=== PATIENT | female | born 1940 | race Caucasian/White ===

== ENCOUNTER 2025-01-23 07:23 | Inpatient (IN) | payer MEDICARE ==
[2025-01-23] MEDS ORDERED: LIDOCAINE 1% (10MG/ML) FOR IV START INTRADERMA PRN ×2 (07:44)
[2025-01-23] MEDS ORDERED: HYDROmorphone 0.5 MG/0.5 ML SYRINGE IVP PRN ×3 (07:44→11:18)
[2025-01-23] MEDS ORDERED: MIDAZOLAM 2 MG/2 ML VIAL IV PRN (07:44)
[2025-01-23] MEDS ORDERED: fentaNYL (PF) 50 MCG/ML 2 ML AMP IVP PRN (07:44)
[2025-01-23] MEDS: IV FLUID CONTINUATION 1,000 ML IV ONE (08:04)
[2025-01-23 08:30] LABS: Glucose,Whole Blood 93 mg/dL (70-110)
[2025-01-23] MEDS: LACTATED RINGERS 1,000 ML IV SCH (08:36)
[2025-01-23] MEDS: DEXAMETHASONE SOD PHOSPHATE 4 MG/ML 1 ML VIAL IV ONE ×2 (08:39→11:58)
[2025-01-23] MEDS: ONDANSETRON 4 MG/2 ML VIAL IVP ONE ×2 (08:39→11:58)
[2025-01-23] MEDS ORDERED: fentaNYL (PF) 50 MCG/ML 2 ML AMP ONE (08:44)
[2025-01-23] MEDS ORDERED: LIDOCAINE 1% INJ 10MG/ML (20 ML MDV) ONE (08:44)
[2025-01-23] MEDS ORDERED: ROCURONIUM 10 MG/ML (5 ML VIAL) IV ONE (08:44)
[2025-01-23] MEDS ORDERED: PROPOFOL 10 MG/ML 20 ML VIAL IV ONE (08:44)
[2025-01-23] MEDS ORDERED: NEOSTIGMINE 1 MG/ML 10 ML VIAL ONE (08:44)
[2025-01-23] MEDS ORDERED: MIDAZOLAM 2 MG/2 ML VIAL ONE (08:44)
[2025-01-23] MEDS ORDERED: HYDROmorphone (PF) 1 MG/ML ONE (08:44)
[2025-01-23] MEDS ORDERED: SUCCINYLCHOLINE CHLORIDE 200 MG/10 ML VIAL IV ONE (08:44)
[2025-01-23] MEDS ORDERED: GLYCOPYRROLATE 0.2 MG/ML 2 ML VIAL ONE (08:44)
[2025-01-23] MEDS: ceFAZolin 2 GM in DEXTROSE 5% IN WATER 50 ML IVPB PRN (08:49)
[2025-01-23] MEDS: ceFAZolin 1,000 MG in SODIUM CHLORIDE 0.9% 1,000 ML IRRIGATION ONE (08:49)
[2025-01-23 08:51] LABS: Basophils # (A) 0.02 10*3/uL (0.00-0.10); Basophils % (A) 0.4 %; Eosinophils # (A) 0.13 10*3/uL (0.04-0.35); Eosinophils % (A) 2.5 %; HGB 12.3 g/dL (12.0-15.0); Lymphocytes # (A) 1.22 10*3/uL (0.90-5.00); Lymphocytes % (A) 23.2 %; MCH 33.2 pg (27.0-32.0); MCHC 35.1 g/dL (32.0-37.0); MCV 94.6 fL (80.0-97.0); Mean Platelet Volume 9.2 fL (9.5-12.2); Monocytes # (A) 0.48 10*3/uL (0.20-1.00); Monocytes % (A) 9.1 %; Neutrophils # (A) 3.39 10*3/uL (1.80-7.70); Neutrophils % (A) 64.6 %; Platelet Count 181 10*3/uL (140-440); RDW 13.2 % (11.5-14.5); WBC 5.25 10*3/uL (4.50-10.00)
[2025-01-23] MEDS: LACTATED RINGERS 1,000 ML IV ONE (10:47)
--- NOTE | 2025-01-23 10:54 | P.OP ---
Date of Procedure: 01/23/25 Preoperative Diagnosis: Irritating hardware right hip Postoperative Diagnosis: Irritated hardware right hip Procedure(s) Performed: Removal of hardware right hip Implants: 10 cc DBM putty Anesthesia: [place] Surgeon: Manan Manning Oil Burner Repairer #1: Lenora Duron (He is about) Estimated Blood Loss (ml): 400 Pathology: none sent Condition: stable Disposition: PACU Indications for Procedure: This is an 84-year-old female that had a sliding hip screw placed in her right hip approximately 30 years ago. 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 Before the hip arthroplasty can be performed, the hardware must be removed from the right hip. Also, the hardware is irritating the lateral side of her hip. After discussing the surgical nonsurgical treatment options at length, she wishes to have the hardware removed from the right hip and informed consent was obtained. Operative Findings: The operative findings are consistent with retained hardware of the right hip Description of Procedure: The patient was seen and evaluated in the preoperative area and the consent was reviewed. The operative site was marked with a skin marker. The patient verified the procedure and operative site. The patient was then brought to the operating room and given preoperative antibiotics intravenously. A general anesthetic was administered by the anesthesia department. The patient was then placed on the [place] table with the bony prominences well-padded. The hip area was then prepped with a ChloraPrep solution and draped in the usual sterile fashion. A universal timeout was then performed, which confirmed the patient's name, surgical site, ALLERGIES, and procedure being performed on the consent. The prior incision was utilized and the skin and subcutaneous tissues were sharply incised. Incision was carried down to the fascia which was then split in line with the incision. The lateral femur was then exposed after dissecting through the vastus lateralis. Next using the appropriate screwdriver the setscrew and 2 proximal locking screws were removed from the plate without difficulty. The 2 distal locking screws were broken and the heads were removed. Next the plate was then dislodged from the femur. Due to bony overgrowth and osteotome and a mallet had to be used to free up the plate. The plate was then removed from the setscrew. The setscrew was then removed with the appropriate screw removal tool. Fluoroscopic x-rays confirmed removal of the setscrew. Next attention was directed to the 2 distal locking screws that were broken. Using the broken screw set the screws were overreamed and then the reverse threaded screw removal tool was then used to remove the 2 screws. After all the screws have been rem paresh, final fluoroscopic x-rays confirmed. Next the wound was copiously irrigated with antibiotic solution. Next 10 cc of DBM putty was used to fill the screw holes from where the plate and screws have been removed. The vastus lateralis was then repaired with 0 Vicryl. The fascia was then closed with 2-0 strata fix suture. The subcutaneous tissue was closed with 3-0 Vicryl. The subcuticular tissue was closed with 3-0 strata fix suture. The skin was then closed with Exofin skin glue. After the glue and dried, and Optifoam silver impregnated dressing was applied. The patient was then transferred to the recovery room in stable condition. The community relations assistant ESMER Wilson was required due to the complexity of surgery, and the need for skilled retail assistant manager for positioning, draping, exposure, retraction, and closure of the wound.
--- NOTE | 2025-01-23 11:03 | XR ---
EXAMINATION TYPE: XR Hip Limited RT, FL guidance operating room Intraoperative/procedural fluoroscopi c services were provided. CLINICAL INDICATION:Female, 84 years old with history of RIGHT HIP PAINFUL HARDWARE; , [facility] FINDINGS: Single fluoroscopic imaging demonstrating right hip hardware removal. No radiographic evidence for co mplication. Total fluoroscopy time is 40 seconds. DAP: 1.6223 Gycm2 Please see the operative/procedural note for further details. [facility], , 01/23/2025 11:00 AM
[2025-01-23] MEDS ORDERED: NALOXONE 0.4 MG/ML 1 ML VIAL IV PRN (11:18)
[2025-01-23] MEDS ORDERED: MAGNESIUM HYDROXIDE 2,400 MG/30 ML CUP PO PRN (11:18)
[2025-01-23] MEDS: HYDROmorphone 0.5 MG/0.5 ML SYRINGE IVP PRN ×2 (11:37→14:50)
[2025-01-23] MEDS: ceFAZolin 2 GM in DEXTROSE 5% IN WATER 50 ML IVPB SCH (16:00)
[2025-01-23] MEDS: SODIUM CHLORIDE 0.9% 1,000 ML IV SCH (16:00)
--- NOTE | 2025-01-23 17:45 | P.CONS ---
History of Present Illness - Reason for Consult Consult date: 01/23/25 - History of Present Illness 84 year old F with PMH of hypothyroidism and depression presents to [facility] for elective surgery. She underwent removal of right hip hardware with Dr. Manning. [facility] consulted for medical management of this patient. Patient reports no pain at this time. Has not urinated. No bowel movement or passing gas. CBC RBC 3.7, Hct 35, MCH 33.2, MPV 9.2. POC glucose 93. General: no distress, appears at stated age Derm: warm, dry Head: atraumatic, normocephalic, symmetric Mouth: no lip lesion, mucus membranes moist Cardiovascular: S1 S2 reg. No murmur. Lungs: Decreased BS bilaterally, no accessory muscle use Ext: no gross muscle atrophy, no edema, no contractures Neuro: No focal neurologic deficits. Psych: Alert and oriented. Based on my assessment of this patient, this patient meets a high complexity level of care. Hypothryoid: Synthroid 88 mcg PO QD. Depression: Lexapro 20 mg PO QHS. Removal of right hip hardware POD 0 management per Orthopedic Sx CODE STATUS: FULL CODE DVT Prophylaxis: ASA BID. GI Prophylaxis: Designated medical POA if patient is not able to make medical decisions for themselves: I have reviewed the following home performance consultant notes: Operative note. I have reviewed the results of the following tests: CBC, POC glucose. I have ordered the following tests: Agree with CBC. I have discussed the care of this patient with the following independent historian: Family at bedside. I have independently interpreted the following test below: I have discussed the management of this patient with the following physician: Past Medical History Past Medical History: Seizure Disorder, Thyroid Disorder Additional Past Medical History / Comment(s): hypothyroidism, anemia, hx. benign tumor neck femur Rt., hypoglycemia - thought to have caused petit mal seizures but last one was 3 yrs. ago History of Any Multi-Drug Resistant Organisms: None Reported Additional Past Surgical History / Comment(s): benign tumor removal Rt. femur 30 yrs. ago Past Anesthesia/Blood Transfusion Reactions: No Reported Reaction Additional Past Anesthesia/Blood Transfusion Reaction / Comm: has never had general anesthesia and does not want it Smoking Status: Never smoker - Past Family History Father Family Medical History: Cancer Additional Family Medical History / Comment(s): pancreatic cancer Mother Family Medical History: Congestive Heart Failure (CHF) Additional Family Medical History / Comment(s): age 94 Medications and Allergies Home Medications Medication Instructions Recorded Confirmed Type Cyanocobalamin [Vitamin B-12 1,000 mcg SQ Q14D 01/05/25 01/23/25 History Injection] Escitalopram [Lexapro] 20 mg PO HS 01/05/25 01/23/25 History Levothyroxine Sodium [Synthroid] 88 mcg PO DAILY 01/05/25 01/23/25 History Aspirin 325 mg PO BID #60 tab 01/23/25 Rx HYDROcodone/APAP 7.5-325MG [[place] 1 - 2 tab PO Q6H PRN #32 tab 01/23/25 Rx 7.5-325] Sennosides [Senokot] 2 tab PO DAILY PRN #60 tablet 01/23/25 Rx Allergies Allergy/AdvReac Type Severity Reaction Status Date / Time No Known Allergies Allergy Verified 01/23/25 08:05 Physical Exam Vitals: Vital Signs Temp Pulse Resp BP Pulse Ox 01/23/25 14:39 75 114/71 99 01/23/25 14:24 77 129/72 99 01/23/25 14:09 75 115/72 98 01/23/25 13:55 75 105/48 100 01/23/25 13:39 68 121/75 100 01/23/25 13:25 81 129/55 100 01/23/25 13:09 67 125/81 99 01/23/25 12:55 83 118/60 100 01/23/25 12:38 77 112/69 98 01/23/25 12:31 97.8 F 63 17 112/69 100 01/23/25 12:13 65 16 116/48 94 L 01/23/25 11:58 72 16 128/53 97 01/23/25 11:43 72 16 129/54 98 01/23/25 11:28 73 16 100/43 98 01/23/25 11:13 97 F L 95 16 103/75 98 01/23/25 08:06 97.5 F L 67 14 153/78 97 Intake and Output 01/23/25 01/23/25 01/23/25 06:59 14:59 22:59 Intake Total 2000 Output Total 400 Balance 1601 Intake: IV 2000 Output: Estimated Blood Loss 400 Other: Weight 79.8 kg Results CBC & Chem 7: 01/23/25 08:40 Labs: Abnormal Lab Results - Last 24 Hours (Table) 01/23/25 Range/Units 08:40 RBC 3.70 L (4.10-5.20) 10*6/uL Hct 35.0 L (37.2-46.3) % MCH 33.2 H (27.0-32.0) pg MPV 9.2 L (9.5-12.2) fL
[2025-01-23] MEDS: ASPIRIN 325 MG TAB PO SCH (21:02)
[2025-01-23] MEDS: SENNOSIDES-DOCUSATE SODIUM 1 EACH TAB PO SCH (21:02)
[2025-01-23] MEDS: ESCITALOPRAM 20 MG TAB PO SCH (21:02)
[2025-01-23] MEDS: HYDROcodone/APAP 7.5-325MG 1 EACH TAB PO PRN (21:02)
[2025-01-24 01:10] LABS: Glucose,Whole Blood 140 mg/dL (70-110)
--- NOTE | 2025-01-24 02:24 | XR ---
EXAM: XR Right Hip With Pelvis When Performed, 2 or 3 Views CLINICAL HISTORY: ITS.REASON XR Reason: Increased pain, hip popping TECHNIQUE: Two or three views of the right hip with pelvis when performed. COMPARISON: No relevant prior studies available. FINDINGS: Bones/joints: Acute displaced and angulated subtrochanteric fracture of the right femur with posttraumatic varus deformity. No right hip joint dislocation. Remodeling of the femoral neck may represent old healed fracture. Uniform joint space narrowing. Soft tissues: Soft tissue swelling lateral to the right hip with hypodense foci suggesting escaped marrow fat. IMPRESSION: 1. Acute displaced and angulated subtrochanteric fracture of the right femur with posttraumatic varus deformity. 2. Soft tissue swelling lateral to the right hip with hypodense foci suggesting escaped marrow fat.
--- NOTE | 2025-01-24 02:26 | XR ---
EXAM: XR Chest, 1 View CLINICAL HISTORY: ITS.REASON XR Reason: PRE OP TECHNIQUE: Frontal view of the chest. COMPARISON: No relevant prior studies available. FINDINGS: Lungs: Linear atelectasis or scar left lung base. No consolidation. Pleural space: No significant pleural effusion. No pneumothorax. Heart: No cardiomegaly or pulmonary vascular congestion. Bones/joints: No acute fracture. No dislocation. IMPRESSION: No acute findings in the chest.
[2025-01-24] MEDS: HYDROcodone/APAP 7.5-325MG 1 EACH TAB PO PRN (04:17)
[2025-01-24] MEDS: LEVOTHYROXINE 88 MCG TAB PO SCH (05:45)
[2025-01-24] MEDS: CYCLOBENZAPRINE 5 MG TAB PO PRN (05:45)
[2025-01-24 08:07] LABS: Basophils # (A) 0.01 X 10*3/uL (0.00-0.10); Basophils % (A) 0.1 %; Eosinophils # (A) 0 X 10*3/uL (0.04-0.35); Eosinophils % (A) 0 %; HCT 26.3 % (37.2-46.3); HGB 8.8 g/dL (12.0-15.0); Lymphocytes # (A) 0.85 X 10*3/uL (0.90-5.00); Lymphocytes % (A) 12.2 %; MCH 32.7 pg (27.0-32.0); MCHC 33.5 g/dL (32.0-37.0); MCV 97.8 FL (80.0-97.0); Mean Platelet Volume 10.4 FL (9.5-12.2); Monocytes # (A) 0.91 X 10*3/uL (0.20-1.00); Monocytes % (A) 13.1 %; NRBC Per 100 WBC 0 X 10*3/uL (0.00-0.01); Neutrophils # (A) 5.16 X 10*3/uL (1.80-7.70); Neutrophils % (A) 74.3 %; Platelet Count 194 X 10*3/uL (140-440); RBC 2.69 X 10*6/uL (4.10-5.20); RDW 13.6 % (11.5-14.5); WBC 6.95 X 10*3/uL (4.50-10.00)
--- NOTE | 2025-01-24 12:49 | P.PN ---
Subjective Progress Note Date: 01/24/25 This is an 84 year-old female who is status post removal of hardware from the right hip on 01/24/2025. This is postoperative day #1 and patient is seen and evaluated at bedside today. Patient states that early this morning she was transferring from the commode to the bed when she felt a pop in the right hip. An x-ray of the right hip was taken after this and revealed a displaced subtrochanteric fracture of the right femur. Patient states that her pain is controlled this morning. Patient denies any fever/chills, numbness, weakness or tingling. Objective - Vital Signs Vital signs: Vital Signs Temp 98.4 F 01/24/25 08:00 Pulse 79 01/24/25 08:00 Resp 18 01/24/25 08:00 BP 106/61 01/24/25 08:00 Pulse Ox 98 01/24/25 08:00 FiO2 Intake & Output 01/23/25 01/24/25 01/24/25 18:59 06:59 18:59 Intake Total 2000 Output Total 400 Balance 1601 Weight 79.8 kg Intake: IV 2000 Output: Estimated Blood Loss 400 Other: Voiding Method Bedside Commode External Catheter # Voids 1 2 # Bowel Movements 0 - Exam Vital signs are stable. Patient is in no acute distress and is alert and oriented 3. Calf is soft and nontender to palpation. Dressing is clean, dry, and intact. Patient has full foot and ankle motion without pain or difficulty. Sensation intact. Neurovascular status and circulatory status are intact. - Labs CBC & Chem 7: 01/24/25 02:54 Labs: Abnormal Lab Results - Last 24 Hours (Table) 01/24/25 01/24/25 Range/Units 01:09 02:54 RBC 2.69 L (4.10-5.20) X 10*6/uL Hgb 8.8 L (12.0-15.0) g/dL Hct 26.3 L (37.2-46.3) % MCV 97.8 H (80.0-97.0) FL MCH 32.7 H (27.0-32.0) pg Lymphocytes # 0.85 L (0.90-5.00) X 10*3/uL Eosinophils # 0 L (0.04-0.35) X 10*3/uL POC Glucose (mg/dL) 140 H (70-110) mg/dL Assessment and Plan (1) S/P hardware removal Current Visit: Yes Status: Acute Code(s): Z98.890 - OTHER SPECIFIED POSTPROCEDURAL STATES SNOMED Code(s): 150733561 (2) Subtrochanteric fracture of right femur Current Visit: Yes Status: Acute Code(s): S72.21XA - DISPLACED SUBTROCHANTERIC FRACTURE OF RIGHT FEMUR, INIT SNOMED Code(s): 035085692 Plan: 1. NPO 2. Continue bed rest and pain control. 3. Hgb is 8.8 today. Type and screen ordered. 4. X-rays of the right hip are reviewed revealing a subtrochanteric right femur fracture. Discussed treatment options at bedside with the patient and her son. Due to the nature of her fracture, closed reduction and intramedullary nailing of the right hip later is planned for later today. All questions and concerns are addressed at bedside today.
[2025-01-24] MEDS ORDERED: NALOXONE 0.4 MG/ML 1 ML VIAL IV PRN (13:03)
[2025-01-24] MEDS: ONDANSETRON 4 MG/2 ML VIAL IVP PRN (13:33)
[2025-01-24] MEDS: IV FLUID CONTINUATION 1,000 ML IV ONE (13:34)
[2025-01-24] MEDS ORDERED: NEOSTIGMINE 1 MG/ML 10 ML VIAL ONE (13:40)
[2025-01-24] MEDS ORDERED: GLYCOPYRROLATE 0.2 MG/ML 2 ML VIAL ONE (13:40)
[2025-01-24] MEDS ORDERED: PHENYLEPHRINE 10 MG/ML VIAL ONE (13:40)
[2025-01-24] MEDS ORDERED: TRANEXAMIC 1,000 MG/100ML-NACL PREMIX BAG ONE (13:40)
[2025-01-24] MEDS ORDERED: PROPOFOL 10 MG/ML 20 ML VIAL IV ONE (13:40)
[2025-01-24] MEDS ORDERED: LIDOCAINE 1% INJ 10MG/ML (20 ML MDV) ONE (13:40)
[2025-01-24] MEDS ORDERED: ROCURONIUM 10 MG/ML (5 ML VIAL) IV ONE (13:40)
[2025-01-24] MEDS ORDERED: MIDAZOLAM 2 MG/2 ML VIAL ONE (13:40)
[2025-01-24] MEDS ORDERED: SUCCINYLCHOLINE CHLORIDE 200 MG/10 ML VIAL IV ONE (13:40)
[2025-01-24] MEDS ORDERED: fentaNYL (PF) 50 MCG/ML 2 ML AMP ONE (13:40)
[2025-01-24] MEDS: ceFAZolin 2 GM in DEXTROSE 5% IN WATER 50 ML IVPB SCH (13:41)
--- NOTE | 2025-01-24 14:00 | P.PN ---
Subjective Progress Note Date: 01/24/25 84 year old F with PMH of hypothyroidism and depression presents to [facility] for elective surgery. She underwent removal of right hip hardware with Dr. Manning. [facility] consulted for medical management of this patient. 01/24 Patient was seen and examined. Using the commode this morning when she heard a pop in her R hip. Hip XR shows acute displaced subtrochanteric fracture of the right femur. CXR was also done which showed no acute findings. Plans for surgery this afternoon. CBC shows WBC 2.69, Hg 8.8, Hct 26.3, MCV 97.8. General: no distress, appears at stated age Derm: warm, dry Head: atraumatic, normocephalic, symmetric Mouth: no lip lesion, mucus membranes moist Cardiovascular: S1 S2 reg. No murmur. Lungs: Decreased BS bilaterally, no accessory muscle use Ext: no gross muscle atrophy, no edema, no contractures Neuro: No focal neurologic deficits. Psych: Alert and oriented. Based on my assessment of this patient, this patient meets a high complexity level of care. Acute blood loss anemia: Expected result of surgery. Daily CBC. Transfuse if Hg < 7. Acute displaced subtrochanteric fracture of the right femur: Plans for OR this afternoon. Hypothryoid: Synthroid 88 mcg PO QD. Depression: Lexapro 20 mg PO QHS. Removal of right hip hardware POD 1 management per Orthopedic Sx CODE STATUS: FULL CODE DVT Prophylaxis: Eliquis BID GI Prophylaxis: Designated medical POA if patient is not able to make medical decisions for themselves: I have reviewed the following hearing aid consultant notes: Ortho note. I have reviewed the results of the following tests: CBC. I have ordered the following tests: Agree with CBC. I have discussed the care of this patient with the following independent historian: Family at bedside. RN. I have independently interpreted the following test below: CXR. I have discussed the management of this patient with the following physician: Objective - Vital Signs Vital signs: Vital Signs Temp 98.9 F 01/24/25 13:03 Pulse 87 01/24/25 13:03 Resp 18 01/24/25 13:03 BP 128/54 01/24/25 13:03 Pulse Ox 93 L 01/24/25 13:03 FiO2 Intake & Output 06/09/25 06/10/25 06/10/25 18:59 06:59 18:59 Intake Total 2000 Output Total 400 Balance 1601 Weight 79.8 kg Intake: IV 2000 Output: Estimated Blood Loss 400 Other: Voiding Method Bedside Commode External Catheter # Voids 1 2 # Bowel Movements 0 - Labs CBC & Chem 7: 01/24/25 02:54 Labs: Abnormal Lab Results - Last 24 Hours (Table) 01/24/25 01/24/25 Range/Units 01:09 02:54 RBC 2.69 L (4.10-5.20) X 10*6/uL Hgb 8.8 L (12.0-15.0) g/dL Hct 26.3 L (37.2-46.3) % MCV 97.8 H (80.0-97.0) FL MCH 32.7 H (27.0-32.0) pg Lymphocytes # 0.85 L (0.90-5.00) X 10*3/uL Eosinophils # 0 L (0.04-0.35) X 10*3/uL POC Glucose (mg/dL) 140 H (70-110) mg/dL
[2025-01-24] MEDS: ceFAZolin 1,000 MG in SODIUM CHLORIDE 0.9% 1,000 ML IRRIGATION ONE (14:11)
[2025-01-24] MEDS: LACTATED RINGERS 1,000 ML IV ONE (15:06)
--- NOTE | 2025-01-24 15:23 | P.OP ---
Date of Procedure: 01/24/25 Preoperative Diagnosis: Subtrochanteric fracture right femur status post hardware removal Postoperative Diagnosis: Subtrochanteric right femur fracture status post hardware removal Procedure(s) Performed: Close reduction and intramedullary nailing right femur Implants: [employer] Tri[employer] Intertan nail 125, 11.5 mm x 34 cm. [employer] Intertan integrated-interlocking lag screw, 100 mm lag screw, 95 mm compression screw. [employer] L-P screw, 5.0 mm x 40 mm. [employer] L-P screw, 5.0 mm x 50 mm. Anesthesia: GETA Surgeon: Manan Manning Wash House Worker #1: Lenora Duron Estimated Blood Loss (ml): 500 Pathology: none sent Condition: stable Disposition: PACU Indications for Procedure: This is an 84-year-old female that had a sliding hip screw removed from her right hip that had been in there approximately 30 years yesterday in the OR. 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 X-rays demons trate a subtrochanteric fracture of her right femur. After reviewing the x- rays, I discussed the surgical nonsurgical treatment options with her and her family at length. I have recommended a closed reduction with the long intramedullary nail of the subtrochanteric fracture of her right femur. Other options including immediate hip replacement were discussed, but I felt that this was too risky of a procedure in light of her recent trauma. After lengthy discussion with me explaining the surgical risks benefits and possible complications to the best my ability, informed consent was obtained. Operative Findings: The operative findings are consistent with a subtrochanteric fracture of the right femur Description of Procedure: The patient was seen in the preoperative area, consent was reviewed, and the operative site was marked with a skin marker. The surgical procedure was discussed at length with both the patient and the family at the bedside. All questions were answered to the best of my ability. The patient was brought to the operating room and placed on the fracture table. Anesthesia was administered by the anesthesia department. 2 g of Ancef were administered intravenously, as well as 1 g of TXA. The patient was placed supine on the fracture table with the fractured extremity in traction boot. The other extremity was placed in a well leg rocha and the bony prominences were well padded. A universal timeout was then performed which confirmed the patient's name, surgical site, ALLERGIES, and consent. Fracture reduction was performed with a traction and abduction maneuver which was confirmed with fluoroscopy, both AP and lateral views.. After reduction was performed, the extremity was then prepped with ChloraPrep solution and draped in the usual sterile fashion. Utilizing fluoroscopy to identify the tip of the greater trochanter, a 3 cm longitudinal incision was made just proximal to the greater trochanter. Incision was carried through the fascia to the tip of the greater trochanter. Utilizing a curved awl, the entry point was created at the tip of the greater trochanter and centralized in the AP and lateral planes. These locations were confirmed by fluoroscopy. A guidewire was then inserted down the medullary canal. The length of the femoral nail was then measured using fluoroscopy. Sequentially reaming of the femur was performed to 13 mm distally and 17 mm proximally with the channel reamer. After reaming, appropriate size nail was inserted over the guidewire. The nail was inserted to the appropriate depth and the guidewire was removed. Placement of the corby was confirmed with both AP and lateral fluoroscopic views. The lag screw drill sleeve was placed in the jig and a small skin incision was made on the lateral aspect of the leg and the lag screw drill sleeve was locked into the guide. The 3.2 mm guide pin sleeve was inserted through the lag screw drill sleeve down to bone. A 3.2 mm distally threaded guidewire was inserted through the guide pin sleeve. The guidewire was inserted in the desired position in the femoral head, both anterior and posterior. The lag screw length cage was inserted over the guidepin to the back of the lag screw drill sleeve. Lag screw length was then measured from the cage. Next, the 7.0 mm compression screw starter drill was inserted in the lag screw drill sleeve beneath the guidepin. The compression screw starter drill was advanced under power until it abutted the back and of the lag screw drill sleeve. The 7.0 mm compression screw drill was inserted through the lag screw drill sleeve into the hole created by the compression screw starter drill. This was advanced under fluoroscopy to a depth 5 mm less and the measurement taken for the guidepin. The compression screw drill was removed and the antirotation bar was inserted into the same hole. The 3.2 mm guide pin sleeve was then removed from the drill guide. The lag screw drill was then inserted to a depth that was measured by the lag screw gauge. This was done under fluoroscopy. The lag screw was inserted over the guidewire to the appropriate depth using fluoroscopy. Traction was then released. The antirotation bar was then removed and the compression screw was advanced through the lag screw drill sleeve beneath the lag screw. This was advanced to the appropriate compression was achieved. The drill guide was then removed and attention was directed to the 2 distal locking screws. Using a freehand technique with fluoroscopy, 2 screws were then placed through the distal locking holes lateral to medial. The length and placement of the screws was confirmed with fluoroscopy. Final fluoroscopic x-rays were obtained. The wounds were then irrigated copiously with saline solution. Fascia was closed with 0-Vicryl. Subcutaneous tissues were closed with 2-0 Vicryl and the skin was closed with exofin glue. Sterile dressings were applied. The patient was transported to the recovery room in stable condition. The assistant professor of criminal justice ESMER Wilson was required due the complexity of surgery the need for skilled surgical scrub technologist for positioning draping retraction and fracture reduction.
--- NOTE | 2025-01-24 17:16 | XR ---
EXAMINATION TYPE: XR Femur RT 1 View, FL guidance operating room, XR Hip Limited RT Intraoperative/pr ocedural fluoroscopic services were provided. CLINICAL INDICATION:Female, 84 years old with history of RT IT NAIL; , [facility] FINDINGS: Fluoroscopic images demonstrating right intramedullary femoral nail with fixation screws for previous ly seen right proximal humerus fracture. No radiographic evidence for complication. Total fluoroscopy time is 1.33 min. DAP: 4.3511 Gycm2 Please see the operative/procedural note for further details. [facility], , 01/24/2025 3:30 PM
[2025-01-24] MEDS: ceFAZolin 2 GM in DEXTROSE 5% IN WATER 50 ML IVPB ONE (18:32)
[2025-01-24] MEDS: TRANEXAMIC 1,000 MG/100ML-NACL 1,000 MG in SALINE 1 100ML.BAG IVPB ONE (18:33)
[2025-01-24 18:42] LABS: Basophils # (A) 0.02 10*3/uL (0.00-0.10); Basophils % (A) 0.2 %; HCT 22.8 % (37.2-46.3); Lymphocytes # (A) 0.49 10*3/uL (0.90-5.00); Lymphocytes % (A) 5.1 %; MCH 33.2 pg (27.0-32.0); MCHC 33.8 g/dL (32.0-37.0); MCV 98.3 fL (80.0-97.0); Mean Platelet Volume 9.7 fL (9.5-12.2); Monocytes # (A) 0.61 10*3/uL (0.20-1.00); Monocytes % (A) 6.4 %; Neutrophils # (A) 8.45 10*3/uL (1.80-7.70); Platelet Count 187 10*3/uL (140-440); RBC 2.32 10*6/uL (4.10-5.20); RDW 13.4 % (11.5-14.5)
[2025-01-24 18:45] LABS: HGB 7.7 g/dL (12.0-15.0)
[2025-01-25 04:32] LABS: African American GFR (CKD) >90 (>60 ml/min/1.73 sqM); Anion Gap 4 mmol/L; Blood Urea Nitrogen 14 mg/dL (7-17); Calcium 8.7 mg/dL (8.4-10.2); Carbon Dioxide 26 mmol/L (22-30); Chloride 101 mmol/L (98-107); Glucose 117 mg/dL (74-99); Non-African American GFR(CKD) 85 (>60 ml/min/1.73 sqM); Potassium 4.1 mmol/L (3.5-5.1); Sodium 131 mmol/L (137-145)
[2025-01-25 08:13] LABS: MCH 32.6 pg (27.0-32.0); Mean Platelet Volume 10.5 FL (9.5-12.2); NRBC Per 100 WBC 0 X 10*3/uL (0.00-0.01); Platelet Count 170 X 10*3/uL (140-440); RBC 1.93 X 10*6/uL (4.10-5.20); RDW 13.9 % (11.5-14.5); WBC 7.21 X 10*3/uL (4.50-10.00)
[2025-01-25 09:04] LABS: Basophils # (A) 0.01 X 10*3/uL (0.00-0.10); Basophils % (A) 0.1 %; Eosinophils # (A) 0 X 10*3/uL (0.04-0.35); Eosinophils % (A) 0 %; HCT 19.1 % (37.2-46.3); HGB 6.3 g/dL (12.0-15.0); Lymphocytes # (A) 1.02 X 10*3/uL (0.90-5.00); Lymphocytes % (A) 14.1 %; Monocytes # (A) 0.79 X 10*3/uL (0.20-1.00); Neutrophils # (A) 5.36 X 10*3/uL (1.80-7.70); Neutrophils % (A) 74.4 %
[2025-01-25 09:05] LABS: Basophils # (A) 0.02 10*3/uL (0.00-0.10); Basophils % (A) 0.3 %; Eosinophils # (A) 0.03 10*3/uL (0.04-0.35); Eosinophils % (A) 0.4 %; HCT 20.2 % (37.2-46.3); Lymphocytes # (A) 1.18 10*3/uL (0.90-5.00); Lymphocytes % (A) 15.6 %; MCHC 34.2 g/dL (32.0-37.0); MCV 99.5 fL (80.0-97.0); Mean Platelet Volume 9.9 fL (9.5-12.2); Monocytes # (A) 0.67 10*3/uL (0.20-1.00); Monocytes % (A) 8.9 %; Neutrophils # (A) 5.62 10*3/uL (1.80-7.70); Neutrophils % (A) 74.5 %; Platelet Count 188 10*3/uL (140-440); RBC 2.03 10*6/uL (4.10-5.20); RDW 13.7 % (11.5-14.5); WBC 7.54 10*3/uL (4.50-10.00)
[2025-01-25 09:20] LABS: HGB 6.9 g/dL (12.0-15.0)
--- NOTE | 2025-01-25 10:36 | P.PN ---
Subjective Progress Note Date: 01/25/25 This is an 84-year-old female who is status post closed reduction and intramedullary nailing of the right femur. This is postoperative day #1 and patient is seen and evaluated at bedside today. Patient states that her pain is well-controlled, but states that she feels quite tired and weak this morning. Hemoglobin came back at 6.9 with 1 unit of blood ordered. Patient will work with physical therapy later this afternoon. Objective - Vital Signs Vital signs: Vital Signs Temp 98.1 F 01/25/25 07:35 Pulse 102 H 01/25/25 07:35 Resp 16 01/25/25 07:35 BP 107/56 01/25/25 07:35 Pulse Ox 97 01/25/25 07:35 FiO2 Intake & Output 01/24/25 01/25/25 01/25/25 18:59 06:59 18:59 Intake Total 1201 Output Total 2300 400 Balance -1099 -400 Intake: IV 1201 Output: Urine 1800 400 Estimated Blood Loss 500 Other: Voiding Method External Catheter Indwelling Catheter Indwelling Catheter # Voids 1 - Exam Vital signs are stable. Patient is in no acute distress and is alert and oriented 3. Calf is soft and nontender to palpation. Dressings are clean, dry, and intact. Patient has full foot and ankle motion without pain or difficulty. Sensation intact. Neurovascular status and circulatory status are intact. - Labs CBC & Chem 7: 01/25/25 08:01 01/25/25 03:13 Labs: Abnormal Lab Results - Last 24 Hours (Table) 01/24/25 01/25/25 01/25/25 Range/Units 18:28 03:13 03:13 RBC 2.32 L 1.93 L (4.10-5.20) 10*6/uL Hgb 7.7 L D 6.3 A* (12.0-15.0) g/dL Hct 22.8 L 19.1 A* (37.2-46.3) % MCV 98.3 H 99.0 H (80.0-97.0) fL MCH 33.2 H 32.6 H (27.0-32.0) pg Neutrophils # 8.45 H (1.80-7.70) 10*3/uL Lymphocytes # 0.49 L (0.90-5.00) 10*3/uL Eosinophils # 0.00 L 0 L (0.04-0.35) 10*3/uL Sodium 131 L (137-145) mmol/L Glucose 117 H (74-99) mg/dL 01/25/25 Range/Units 08:01 RBC 2.03 L (4.10-5.20) 10*6/uL Hgb 6.9 L* (12.0-15.0) g/dL Hct 20.2 L (37.2-46.3) % MCV 99.5 H (80.0-97.0) fL MCH 34.0 H (27.0-32.0) pg Neutrophils # (1.80-7.70) 10*3/uL Lymphocytes # (0.90-5.00) 10*3/uL Eosinophils # 0.03 L (0.04-0.35) 10*3/uL Sodium (137-145) mmol/L Glucose (74-99) mg/dL Assessment and Plan Assessment: Status post closed reduction and intramedullary nailing of the right femur for subtrochanteric femur fracture (1) S/P hardware removal Current Visit: Yes Status: Acute Code(s): Z98.890 - OTHER SPECIFIED POSTPROCEDURAL STATES SNOMED Code(s): 771267757 (2) Subtrochanteric fracture of right femur Current Visit: Yes Status: Acute Code(s): S72.21XA - DISPLACED SUBTROCHANTERIC FRACTURE OF RIGHT FEMUR, INIT SNOMED Code(s): 279864594 Plan: 1. Strictly nonweightbearing to the right lower extremity. 2. Continue pain control. 3. Eliquis for DVT prophylaxis. 4. Hgb 6.9 this morning. 1 unit of blood ordered. 5. Physical therapy for mobilization. 6. Appreciate input from internal medicine. 7. Anticipate discharge to [facility] in the next 24-48 hours.
[2025-01-25] MEDS: APIXABAN 2.5 MG TABLET PO SCH (11:59)
[2025-01-25] MEDS: LACTATED RINGERS 1,000 ML IV SCH (12:00)
--- NOTE | 2025-01-25 16:34 | P.PN ---
Subjective Progress Note Date: 01/25/25 84 year old F with PMH of hypothyroidism and depression presents to [facility] for elective surgery. She underwent removal of right hip hardware with Dr. Manning. [facility] consulted for medical management of this patient. 01/24 Patient was seen and examined. Using the commode this morning when she heard a pop in her R hip. Hip XR shows acute displaced subtrochanteric fracture of the right femur. CXR was also done which showed no acute findings. Plans for surgery this afternoon. CBC shows WBC 2.69, Hg 8.8, Hct 26.3, MCV 97.8. 01/25 Patient was seen and examined. In good spirits. Urinating freely. Passing gas but no BM. Denies dizziness, chest pain, SOB, palpitations. Underwent closed reduction and intramedullary nailing right femur on 01/24. CBC this morning shows RBC 2.03, Hg 6.9, Hct 20.2, MCV 99.5. Plans to transfuse 1 PRBC. General: no distress, appears at stated age Derm: warm, dry Head: atraumatic, normocephalic, symmetric Mouth: no lip lesion, mucus membranes moist Cardiovascular: S1 S2 tachy. No murmur. Lungs: Decreased BS bilaterally, no accessory muscle use Ext: no gross muscle atrophy, no edema, no contractures Neuro: No focal neurologic deficits. Psych: Alert and oriented. Based on my assessment of this patient, this patient meets a high complexity level of care. Acute blood loss anemia: Expected result of surgery. Daily CBC. Plans to transfuse 1 PRBC 01/25. Transfuse if Hg < 7. Acute displaced subtrochanteric fracture of the right femur: POD 1 closed reduction and intramedullary nailing right femur. Hypothryoid: Synthroid 88 mcg PO QD. Depression: Lexapro 20 mg PO QHS. Removal of right hip hardware POD 2 management per Orthopedic Sx CODE STATUS: FULL CODE DVT Prophylaxis: Hold Eliquis due to drop in Hg. GI Prophylaxis: Designated medical POA if patient is not able to make medical decisions for themselves: I have reviewed the following sustainability consultant notes: Ortho note. I have reviewed the results of the following tests: CBC. I have ordered the following tests: Agree with CBC. I have discussed the care of this patient with the following independent histor jem: Family at bedside. RN. I have independently interpreted the following test below: I have discussed the management of this patient with the following physician: Objective - Vital Signs Vital signs: Vital Signs Temp 98.1 F 01/25/25 16:15 Pulse 94 01/25/25 16:15 Resp 16 01/25/25 16:15 BP 118/66 01/25/25 16:15 Pulse Ox 100 01/25/25 16:15 FiO2 Intake & Output 01/24/25 01/25/25 01/25/25 18:59 06:59 18:59 Intake Total 1201 310 Output Total 2300 400 Balance -1099 -400 310 Intake: IV 1201 Blood Product 310 Rc As-1 Unit 310 [id number] Output: Urine 1800 400 Estimated Blood Loss 500 Other: Voiding Method External Catheter Indwelling Catheter Indwelling Catheter # Voids 1 - Labs CBC & Chem 7: 01/25/25 08:01 01/25/25 03:13 Labs: Abnormal Lab Results - Last 24 Hours (Table) 01/24/25 01/25/25 01/25/25 Range/Units 18:28 03:13 03:13 RBC 2.32 L 1.93 L (4.10-5.20) 10*6/uL Hgb 7.7 L D 6.3 A* (12.0-15.0) g/dL Hct 22.8 L 19.1 A* (37.2-46.3) % MCV 98.3 H 99.0 H (80.0-97.0) fL MCH 33.2 H 32.6 H (27.0-32.0) pg Neutrophils # 8.45 H (1.80-7.70) 10*3/uL Lymphocytes # 0.49 L (0.90-5.00) 10*3/uL Eosinophils # 0.00 L 0 L (0.04-0.35) 10*3/uL Sodium 131 L (137-145) mmol/L Glucose 117 H (74-99) mg/dL Crossmatch 01/25/25 01/25/25 Range/Units 08:01 08:09 RBC 2.03 L (4.10-5.20) 10*6/uL Hgb 6.9 L* (12.0-15.0) g/dL Hct 20.2 L (37.2-46.3) % MCV 99.5 H (80.0-97.0) fL MCH 34.0 H (27.0-32.0) pg Neutrophils # (1.80-7.70) 10*3/uL Lymphocytes # (0.90-5.00) 10*3/uL Eosinophils # 0.03 L (0.04-0.35) 10*3/uL Sodium (137-145) mmol/L Glucose (74-99) mg/dL Crossmatch See Detail
[2025-01-26 08:56] LABS: HCT 21.2 % (37.2-46.3); HGB 6.8 g/dL (12.0-15.0); MCH 30.5 pg (27.0-32.0); MCHC 32.1 g/dL (32.0-37.0); MCV 95.1 FL (80.0-97.0); Mean Platelet Volume 9.7 FL (9.5-12.2); NRBC Per 100 WBC 0 X 10*3/uL (0.00-0.01); Platelet Count 148 X 10*3/uL (140-440); RBC 2.23 X 10*6/uL (4.10-5.20); RDW 17.7 % (11.5-14.5); WBC 6.38 X 10*3/uL (4.50-10.00)
[2025-01-26 08:57] LABS: Basophils # (A) 0.03 X 10*3/uL (0.00-0.10); Basophils % (A) 0.5 %; Eosinophils # (A) 0.21 X 10*3/uL (0.04-0.35); Eosinophils % (A) 3.3 %; Lymphocytes # (A) 1.55 X 10*3/uL (0.90-5.00); Lymphocytes % (A) 24.3 %; Monocytes # (A) 0.73 X 10*3/uL (0.20-1.00); Monocytes % (A) 11.4 %; Neutrophils # (A) 3.83 X 10*3/uL (1.80-7.70)
--- NOTE | 2025-01-26 11:57 | P.PN ---
Subjective Progress Note Date: 01/26/25 This is an 84-year-old female who is status post closed reduction and intramedullary nailing of the right femur. This is postoperative day #2 and patient is seen and evaluated at bedside today. Patient states that her pain is well-controlled today. Patient denies any new complaints today. . Objective - Vital Signs Vital signs: Vital Signs Temp 98.2 F 01/26/25 11:15 Pulse 89 01/26/25 11:15 Resp 16 01/26/25 11:15 BP 125/70 01/26/25 11:15 Pulse Ox 100 01/26/25 11:15 FiO2 Intake & Output 01/25/25 01/26/25 01/26/25 18:59 06:59 18:59 Intake Total 310 540 0 Output Total 500 325 Balance -190 215 0 Intake: Oral 540 Blood Product 310 0 Unit 0 Rc As-1 Unit 310 [id number] Output: Urine 500 325 Uretheral (Laboy) 325 Other: Voiding Method Indwelling Catheter Indwelling Catheter Indwelling Catheter - Exam Vital signs are stable. Patient is in no acute distress and is alert and oriented 3. Calf is soft and nontender to palpation. Dressings are clean, dry, and intact. Patient has full foot and ankle motion without pain or difficulty. Sensation intact. Neurovascular status and circulatory status are intact. - Labs CBC & Chem 7: 01/26/25 03:10 01/25/25 03:13 Labs: Abnormal Lab Results - Last 24 Hours (Table) 01/25/25 01/26/25 Range/Units 08:09 03:10 RBC 2.23 L (4.10-5.20) X 10*6/uL Hgb 6.8 A* (12.0-15.0) g/dL Hct 21.2 L (37.2-46.3) % RDW 17.7 H (11.5-14.5) % Crossmatch See Detail Assessment and Plan Assessment: Postop day #2 closed reduction and intramedullary nailing of the right femur for subtrochanteric femur fracture Postop day #3 removal of hardware right hip. (1) S/P hardware removal Current Visit: Yes Status: Acute Code(s): Z98.890 - OTHER SPECIFIED POSTPROCEDURAL STATES SNOMED Code(s): 079964502 (2) Subtrochanteric fracture of right femur Current Visit: Yes Status: Acute Code(s): S72.21XA - DISPLACED SUBTROCHANTERIC FRACTURE OF RIGHT FEMUR, INIT SNOMED Code(s): 078822106 Plan: 1. Strictly nonweightbearing to the right lower extremity. 2. Continue pain control. 3. Eliquis for DVT prophylaxis. 4. Hgb 6.8 this morning. 1 unit of blood ordered. 5. Physical therapy for mobilization. 6. Appreciate input from internal medicine. 7. Anticipate discharge to [facility] in the next 24-48 hours.
--- NOTE | 2025-01-26 13:15 | P.PN ---
Subjective Progress Note Date: 01/26/25 84 year old F with PMH of hypothyroidism and depression presents to [facility] for elective surgery. She underwent removal of right hip hardware with Dr. Manning. [facility] consulted for medical management of this patient. 01/24 Patient was seen and examined. Using the commode this morning when she heard a pop in her R hip. Hip XR shows acute displaced subtrochanteric fracture of the right femur. CXR was also done which showed no acute findings. Plans for surgery this afternoon. CBC shows WBC 2.69, Hg 8.8, Hct 26.3, MCV 97.8. 01/25 Patient was seen and examined. In good spirits. Urinating freely. Passing gas but no BM. Denies dizziness, chest pain, SOB, palpitations. Underwent closed reduction and intramedullary nailing right femur on 01/24. CBC this morning shows RBC 2.03, Hg 6.9, Hct 20.2, MCV 99.5. Plans to transfuse 1 PRBC. 01/26 Patient was seen and examined. Reports hip discomfort with movement. Passing gas but no BM. CBC this morning shows RBC 2.23, Hg 6.8, Hct 21.2. Plans to transfuse 1 PRBC. General: no distress, appears at stated age Derm: warm, dry Head: atraumatic, normocephalic, symmetric Mouth: no lip lesion, mucus membranes moist Cardiovascular: S1 S2 tachy. No murmur. Lungs: Decreased BS bilaterally, no accessory muscle use Ext: no gross muscle atrophy, no edema, no contractures Neuro: No focal neurologic deficits. Psych: Alert and oriented. Based on my assessment of this patient, this patient meets a high complexity level of care. Acute blood loss anemia: Expected result of surgery. Daily CBC. Plans to transfuse 1 PRBC 01/25 + 01/26. Transfuse if Hg < 7. Acute displaced subtrochanteric fracture of the right femur: POD 2 closed reduction and intramedullary nailing right femur. Fall precautions. PT and OT on board. Orthopedic Sx managing. Hypothryoid: Synthroid 88 mcg PO QD. Depression: Lexapro 20 mg PO QHS. Removal of right hip hardware POD 3 management per Orthopedic Sx CODE STATUS: FULL CODE DVT Prophylaxis: Hold Eliquis due to drop in Hg. GI Prophylaxis: Designated medical POA if patient is not able to make medical decisions for themselves: I have reviewed the following building energy consultant notes: Ortho note. I have reviewed the results of the following tests: CBC. I have ordered the following tests: Agree with CBC. I have discussed the care of this patient with the following independent historian: Family at bedside. Case management. I have independently interpreted the following test below: I have discussed the management of this patient with the following physician: Objective - Vital Signs Vital signs: Vital Signs Temp 98.2 F 01/26/25 11:15 Pulse 89 01/26/25 11:15 Resp 16 01/26/25 11:15 BP 125/70 01/26/25 11:15 Pulse Ox 100 01/26/25 11:15 FiO2 Intake & Output 01/25/25 01/26/25 01/26/25 18:59 06:59 18:59 Intake Total 310 540 0 Output Total 500 325 Balance -190 215 0 Intake: Oral 540 Blood Product 310 0 Unit 0 Rc As-1 Unit 310 [id number] Output: Urine 500 325 Uretheral (Laboy) 325 Other: Voiding Method Indwelling Catheter Indwelling Catheter Indwelling Catheter # Voids 1 - Labs CBC & Chem 7: 01/26/25 03:10 01/25/25 03:13 Labs: Abnormal Lab Results - Last 24 Hours (Table) 01/25/25 01/26/25 Range/Units 08:09 03:10 RBC 2.23 L (4.10-5.20) X 10*6/uL Hgb 6.8 A* (12.0-15.0) g/dL Hct 21.2 L (37.2-46.3) % RDW 17.7 H (11.5-14.5) % Crossmatch See Detail
[2025-01-26 19:02] LABS: Basophils # (A) 0.03 10*3/uL (0.00-0.10); Basophils % (A) 0.5 %; Eosinophils % (A) 3.3 %; HCT 24.2 % (37.2-46.3); HGB 8.3 g/dL (12.0-15.0); Lymphocytes # (A) 1.22 10*3/uL (0.90-5.00); Lymphocytes % (A) 19.9 %; MCH 31.2 pg (27.0-32.0); MCHC 34.3 g/dL (32.0-37.0); Mean Platelet Volume 9.5 fL (9.5-12.2); Monocytes # (A) 0.56 10*3/uL (0.20-1.00); Monocytes % (A) 9.1 %; Neutrophils # (A) 4.07 10*3/uL (1.80-7.70); Neutrophils % (A) 66.2 %; Platelet Count 155 10*3/uL (140-440); RBC 2.66 10*6/uL (4.10-5.20); WBC 6.14 10*3/uL (4.50-10.00)
[2025-01-27 08:55] LABS: Basophils # (A) 0.02 X 10*3/uL (0.00-0.10); Basophils % (A) 0.3 %; Eosinophils # (A) 0.18 X 10*3/uL (0.04-0.35); Eosinophils % (A) 3.1 %; HCT 21.8 % (37.2-46.3); HGB 7.3 g/dL (12.0-15.0); Lymphocytes # (A) 1.17 X 10*3/uL (0.90-5.00); Lymphocytes % (A) 20.5 %; MCH 31.1 pg (27.0-32.0); MCHC 33.5 g/dL (32.0-37.0); MCV 92.8 FL (80.0-97.0); Mean Platelet Volume 9.8 FL (9.5-12.2); Monocytes # (A) 0.56 X 10*3/uL (0.20-1.00); Monocytes % (A) 9.8 %; NRBC Per 100 WBC 0 X 10*3/uL (0.00-0.01); Neutrophils # (A) 3.76 X 10*3/uL (1.80-7.70); Neutrophils % (A) 65.8 %; Platelet Count 151 X 10*3/uL (140-440); RBC 2.35 X 10*6/uL (4.10-5.20); RDW 17.2 % (11.5-14.5); WBC 5.72 X 10*3/uL (4.50-10.00)
--- NOTE | 2025-01-27 08:58 | P.PN ---
Subjective Progress Note Date: 01/27/25 Principal diagnosis: Right hip fracture This is an 84-year-old female who is status post closed reduction and intramedullary nailing of the right femur. This is postoperative day #3 and patient is seen and evaluated at bedside today. Patient states that her pain is well-controlled today. Patient denies any new complaints today. She was given another unit of blood yesterday. Hemoglobin is 8.3 today.. Objective - Vital Signs Vital signs: Vital Signs Temp 98.6 F 01/27/25 01:14 Pulse 84 01/27/25 01:14 Resp 16 01/27/25 01:14 BP 116/61 01/27/25 01:14 Pulse Ox 96 01/27/25 01:14 FiO2 Intake & Output 01/26/25 01/27/25 01/27/25 18:59 06:59 18:59 Intake Total 785 Output Total 700 1075 Balance 85 -1075 Intake: Oral 475 Blood Product 310 Rc As-1 Unit 310 [id number] Output: Urine 700 1075 Other: Voiding Method Indwelling Catheter Indwelling Catheter # Voids 1 # Bowel Movements 0 - Exam This is a pleasant 84-year-old female in no acute distress. She is alert and oriented x 3. Exam of the lower extremities reveals that her dressing is clean, dry and intact. She has full foot and ankle motion bilaterally. Pedal pulses +2/4. Neurovascular status to the lower extremity is intact. - Labs CBC & Chem 7: 01/26/25 18:29 01/25/25 03:13 Labs: Abnormal Lab Results - Last 24 Hours (Table) 01/25/25 01/26/25 01/26/25 Range/Units 08:09 03:10 18:29 RBC 2.23 L 2.66 L (4.10-5.20) X 10*6/uL Hgb 6.8 A* 8.3 L (12.0-15.0) g/dL Hct 21.2 L 24.2 L (37.2-46.3) % RDW 17.7 H 17.0 H (11.5-14.5) % Immature Gran # 0.06 H (0.00-0.04) 10*3/uL Crossmatch See Detail Assessment and Plan (1) S/P hardware removal Current Visit: Yes Status: Acute Code(s): Z98.890 - OTHER SPECIFIED POSTPROCEDURAL STATES SNOMED Code(s): 458558131 (2) Subtrochanteric fracture of right femur Current Visit: Yes Status: Acute Code(s): S72.21XA - DISPLACED SUBTROCHANTERIC FRACTURE OF RIGHT FEMUR, INIT SNOMED Code(s): 920819270 Plan: The clinical and laboratory findings are discussed with the patient and her family. We are planning discharge to home versus inpatient rehab when cleared medically.
--- NOTE | 2025-01-27 14:07 | P.PN ---
Subjective Progress Note Date: 01/27/25 84 year old F with PMH of hypothyroidism and depression presents to [facility] for elective surgery. She underwent removal of right hip hardware with Dr. Manning. [facility] consulted for medical management of this patient. 01/24 Patient was seen and examined. Using the commode this morning when she heard a pop in her R hip. Hip XR shows acute displaced subtrochanteric fracture of the right femur. CXR was also done which showed no acute findings. Plans for surgery this afternoon. CBC shows WBC 2.69, Hg 8.8, Hct 26.3, MCV 97.8. 01/25 Patient was seen and examined. In good spirits. Urinating freely. Passing gas but no BM. Denies dizziness, chest pain, SOB, palpitations. Underwent closed reduction and intramedullary nailing right femur on 01/24. CBC this morning shows RBC 2.03, Hg 6.9, Hct 20.2, MCV 99.5. Plans to transfuse 1 PRBC. 01/26 Patient was seen and examined. Reports hip discomfort with movement. Passing gas but no BM. CBC this morning shows RBC 2.23, Hg 6.8, Hct 21.2. Plans to transfuse 1 PRBC. 01/27 Patient was seen and examined. No acute events overnight. CBC shows RBC 2.35, Hg 7.3, Hct 21.8. General: no distress, appears at stated age Derm: warm, dry Head: atraumatic, normocephalic, symmetric Mouth: no lip lesion, mucus membranes moist Cardiovascular: good distal perfusion in all 4 extremities Lungs: breathing comfortably, no accessory muscle use Ext: no gross muscle atrophy, no edema, no contractures Neuro: No focal neurologic deficits. Psych: Alert and oriented. Based on my assessment of this patient, this patient meets a high complexity level of care. Acute blood loss anemia: Expected result of surgery. Daily CBC. Plans to transfuse 1 PRBC 01/25 + 01/26. Repeat CBC at 5PM and in the AM. Transfuse if Hg < 7. Acute displaced subtrochanteric fracture of the right femur: POD 3 closed reduction and intramedullary nailing right femur. Fall precautions. PT and OT on board. Orthopedic Sx managing. Hypothryoid: Synthroid 88 mcg PO QD. Depression: Lexapro 20 mg PO QHS. Removal of right hip hardware POD 4 management per Orthopedic Sx CODE STATUS: FULL CODE DVT Prophylaxis: Hold Eliquis due to drop in Hg. GI Prophylaxis: Designated medical POA if patient is not able to make medical decisions for themselves: I have reviewed the following personal consultant notes: Ortho note. I have reviewed the results of the following tests: CBC. I have ordered the following tests: CBC at 5PM and in the AM. I have discussed the care of this patient with the following independent h istorian: Family at bedside. Case management. I have independently interpreted the following test below: I have discussed the management of this patient with the following physician: Objective - Vital Signs Vital signs: Vital Signs Temp 98.2 F 01/27/25 07:29 Pulse 79 01/27/25 07:29 Resp 18 01/27/25 07:29 BP 110/64 01/27/25 07:29 Pulse Ox 93 L 01/27/25 07:29 FiO2 Intake & Output 01/26/25 01/27/25 01/27/25 18:59 06:59 18:59 Intake Total 785 Output Total 700 1075 Balance 85 -1075 Intake: Oral 475 Blood Product 310 Rc As-1 Unit 310 [id number] Output: Urine 700 1075 Other: Voiding Method Indwelling Catheter Indwelling Catheter Indwelling Catheter # Voids 1 # Bowel Movements 0 - Labs CBC & Chem 7: 01/27/25 02:37 01/25/25 03:13 Labs: Abnormal Lab Results - Last 24 Hours (Table) 01/25/25 01/26/25 01/27/25 Range/Units 08:09 18:29 02:37 RBC 2.66 L 2.35 L (4.10-5.20) 10*6/uL Hgb 8.3 L 7.3 L (12.0-15.0) g/dL Hct 24.2 L 21.8 L (37.2-46.3) % RDW 17.0 H 17.2 H (11.5-14.5) % Immature Gran # 0.06 H (0.00-0.04) 10*3/uL Crossmatch See Detail
[2025-01-27] MEDS: CYANOCOBALAMIN 1,000 MCG/ML 1 ML VIAL IM ONE (15:47)
[2025-01-27 17:01] LABS: HCT 23.9 % (37.2-46.3); HGB 8.2 g/dL (12.0-15.0); MCH 31.9 pg (27.0-32.0); MCHC 34.3 g/dL (32.0-37.0); Mean Platelet Volume 9.4 fL (9.5-12.2); Platelet Count 161 10*3/uL (140-440); RBC 2.57 10*6/uL (4.10-5.20); RDW 16.8 % (11.5-14.5); WBC 5.99 10*3/uL (4.50-10.00)
[2025-01-27] MEDS: LORATADINE 10 MG TAB PO PRN (22:30)
[2025-01-28 09:37] LABS: Basophils # (A) 0.02 X 10*3/uL (0.00-0.10); Basophils % (A) 0.4 %; Eosinophils # (A) 0.22 X 10*3/uL (0.04-0.35); Eosinophils % (A) 3.9 %; HCT 23.9 % (37.2-46.3); HGB 7.8 g/dL (12.0-15.0); Lymphocytes # (A) 1.04 X 10*3/uL (0.90-5.00); Lymphocytes % (A) 18.6 %; MCH 30.5 pg (27.0-32.0); MCHC 32.6 g/dL (32.0-37.0); MCV 93.4 FL (80.0-97.0); Mean Platelet Volume 9.9 FL (9.5-12.2); Monocytes # (A) 0.55 X 10*3/uL (0.20-1.00); Monocytes % (A) 9.8 %; NRBC Per 100 WBC 0 X 10*3/uL (0.00-0.01); Neutrophils # (A) 3.75 X 10*3/uL (1.80-7.70); Neutrophils % (A) 66.9 %; Platelet Count 192 X 10*3/uL (140-440); RBC 2.56 X 10*6/uL (4.10-5.20); RDW 16.7 % (11.5-14.5)
--- NOTE | 2025-01-28 12:02 | P.PN ---
Subjective Progress Note Date: 01/28/25 84 year old F with PMH of hypothyroidism and depression presents to [facility] for elective surgery. She underwent removal of right hip hardware with Dr. Manning. [facility] consulted for medical management of this patient. 01/24 Patient was seen and examined. Using the commode this morning when she heard a pop in her R hip. Hip XR shows acute displaced subtrochanteric fracture of the right femur. CXR was also done which showed no acute findings. Plans for surgery this afternoon. CBC shows WBC 2.69, Hg 8.8, Hct 26.3, MCV 97.8. 01/25 Patient was seen and examined. In good spirits. Urinating freely. Passing gas but no BM. Denies dizziness, chest pain, SOB, palpitations. Underwent closed reduction and intramedullary nailing right femur on 01/24. CBC this morning shows RBC 2.03, Hg 6.9, Hct 20.2, MCV 99.5. Plans to transfuse 1 PRBC. 01/26 Patient was seen and examined. Reports hip discomfort with movement. Passing gas but no BM. CBC this morning shows RBC 2.23, Hg 6.8, Hct 21.2. Plans to transfuse 1 PRBC. 01/27 Patient was seen and examined. No acute events overnight. CBC shows RBC 2.35, Hg 7.3, Hct 21.8. 01/28 Patient was seen and examined. No acute events overnight. Able to have a bowel movement today. CBC shows RBC 2.56, Hg 7.8, Hct 23.9. General: no distress, appears at stated age Derm: warm, dry Head: atraumatic, normocephalic, symmetric Mouth: no lip lesion, mucus membranes moist Cardiovascular: good distal perfusion in all 4 extremities Lungs: breathing comfortably, no accessory muscle use Ext: no gross muscle atrophy, no edema, no contractures Neuro: No focal neurologic deficits. Psych: Alert and oriented. +Narda Based on my assessment of this patient, this patient meets a high complexity level of care. Acute blood loss anemia: Expected result of surgery. Daily CBC. Transfused 1 PRBC 01/25 + 01/26. Repeat CBC in the AM. Transfuse if Hg < 7. Acute displaced subtrochanteric fracture of the right femur: POD 4 closed reduction and intramedullary nailing right femur. Fall precautions. PT and OT on board. Orthopedic Sx managing. Hypothryoid: Synthroid 88 mcg PO QD. Depression: Lexapro 20 mg PO QHS. Removal of right hip hardware POD 5 management per Orthopedic Sx Plans for SNF. Attempt voiding trial tomorrow when more mobile. CODE STATUS: FULL CODE DVT Prophylaxis: Hold Eliquis due to drop in Hg. GI Prophylaxis: Designated medical POA if patient is not able to make medical decisions for themselves: I have reviewed the following oracle adf consultant notes: Ortho note. I have reviewed the results of the following tests: CBC. I have ordered the following tests: CBC in the AM. I have discussed the care of this patient with the following independent historian: Family at bedside. I have independently interpreted the following test below: I have discussed the management of this patient with the following physician: Objective - Vital Signs Vital signs: Vital Signs Temp 98.0 F 01/28/25 06:45 Pulse 79 01/28/25 06:45 Resp 17 01/28/25 06:45 BP 113/68 01/28/25 06:45 Pulse Ox 95 01/28/25 06:45 FiO2 Intake & Output 01/27/25 01/28/25 01/28/25 18:59 06:59 18:59 Output Total 400 700 Balance -400 -700 Output: Urine 400 700 Other: Voiding Method Indwelling Catheter Indwelling Catheter # Bowel Movements 1 - Labs CBC & Chem 7: 01/28/25 04:33 01/25/25 03:13 Labs: Abnormal Lab Results - Last 24 Hours (Table) 01/27/25 01/28/25 Range/Units 16:49 04:33 RBC 2.57 L 2.56 L (4.10-5.20) 10*6/uL Hgb 8.2 L 7.8 L (12.0-15.0) g/dL Hct 23.9 L 23.9 L (37.2-46.3) % RDW 16.8 H 16.7 H (11.5-14.5) % MPV 9.4 L (9.5-12.2) fL
--- NOTE | 2025-01-28 19:13 | P.PN ---
Subjective Progress Note Date: 01/28/25 This is an 84-year-old female who is status post closed reduction and intramedullary nailing of the right femur. This is postoperative day #4 and patient is seen and evaluated at bedside today. Patient states that her pain is well-controlled today. Patient denies any new complaints today. She has been given blood transfusions and remains stable Objective - Vital Signs Vital signs: Vital Signs Temp 98.0 F 01/28/25 06:45 Pulse 79 01/28/25 06:45 Resp 17 01/28/25 06:45 BP 113/68 01/28/25 06:45 Pulse Ox 95 01/28/25 06:45 FiO2 Intake & Output 01/27/25 01/28/25 01/28/25 18:59 06:59 18:59 Output Total 400 700 Balance -400 -700 Output: Urine 400 700 Other: Voiding Method Indwelling Catheter Indwelling Catheter # Bowel Movements 1 - Exam Inspection reveals a benign surgical wound. There is no active bleeding or drainage. Neurovascular status is intact throughout the lower extremity with motor and sensation fully intact. Calf is soft and nontender. 2+ dorsalis pedis pulse and less than 2 second cap refill is present. - Constitutional General appearance: Present: no acute distress - Labs CBC & Chem 7: 01/28/25 04:33 01/25/25 03:13 Labs: Abnormal Lab Results - Last 24 Hours (Table) 01/27/25 01/28/25 Range/Units 16:49 04:33 RBC 2.57 L 2.56 L (4.10-5.20) 10*6/uL Hgb 8.2 L 7.8 L (12.0-15.0) g/dL Hct 23.9 L 23.9 L (37.2-46.3) % RDW 16.8 H 16.7 H (11.5-14.5) % MPV 9.4 L (9.5-12.2) fL Assessment and Plan (1) S/P hardware removal Narrative/Plan: She will continue with routine postop orthopedic protocol including pain management, wound care, PT, DVT prophylaxis and medical management. Expect that she will transfer to rehab in next 1-2 days Current Visit: Yes Status: Acute Priority: Medium Code(s): Z98.890 - OTHER SPECIFIED POSTPROCEDURAL STATES SNOMED Code(s): 260236294 (2) Subtrochanteric fracture of right femur Current Visit: Yes Status: Acute Priority: Medium Code(s): S72.21XA - DISPLACED SUBTROCHANTERIC FRACTURE OF RIGHT FEMUR, INIT SNOMED Code(s): 487994974 Time with Patient: Less than 30
[2025-01-29 09:25] LABS: Basophils # (A) 0.01 X 10*3/uL (0.00-0.10); Basophils % (A) 0.2 %; Eosinophils # (A) 0.17 X 10*3/uL (0.04-0.35); HCT 24.6 % (37.2-46.3); HGB 7.9 g/dL (12.0-15.0); Lymphocytes # (A) 1.29 X 10*3/uL (0.90-5.00); Lymphocytes % (A) 22.8 %; MCH 30.7 pg (27.0-32.0); MCHC 32.1 g/dL (32.0-37.0); MCV 95.7 FL (80.0-97.0); Mean Platelet Volume 10.6 FL (9.5-12.2); Monocytes # (A) 0.54 X 10*3/uL (0.20-1.00); Monocytes % (A) 9.5 %; NRBC Per 100 WBC 0 X 10*3/uL (0.00-0.01); Neutrophils # (A) 3.63 X 10*3/uL (1.80-7.70); Platelet Count 193 X 10*3/uL (140-440); RBC 2.57 X 10*6/uL (4.10-5.20); RDW 16.6 % (11.5-14.5); WBC 5.67 X 10*3/uL (4.50-10.00)
--- NOTE | 2025-01-29 13:14 | P.PN ---
Subjective Progress Note Date: 01/29/25 84 year old F with PMH of hypothyroidism and depression presents to [facility] for elective surgery. She underwent removal of right hip hardware with Dr. Manning. [facility] consulted for medical management of this patient. 01/24 Patient was seen and examined. Using the commode this morning when she heard a pop in her R hip. Hip XR shows acute displaced subtrochanteric fracture of the right femur. CXR was also done which showed no acute findings. Plans for surgery this afternoon. CBC shows WBC 2.69, Hg 8.8, Hct 26.3, MCV 97.8. 01/25 Patient was seen and examined. In good spirits. Urinating freely. Passing gas but no BM. Denies dizziness, chest pain, SOB, palpitations. Underwent closed reduction and intramedullary nailing right femur on 01/24. CBC this morning shows RBC 2.03, Hg 6.9, Hct 20.2, MCV 99.5. Plans to transfuse 1 PRBC. 01/26 Patient was seen and examined. Reports hip discomfort with movement. Passing gas but no BM. CBC this morning shows RBC 2.23, Hg 6.8, Hct 21.2. Plans to transfuse 1 PRBC. 01/27 Patient was seen and examined. No acute events overnight. CBC shows RBC 2.35, Hg 7.3, Hct 21.8. 01/28 Patient was seen and examined. No acute events overnight. Able to have a bowel movement today. CBC shows RBC 2.56, Hg 7.8, Hct 23.9. 01/29 Patient was seen and examined. No acute events overnight. CBC shows RBC 2.57, Hg 7.9, Hct 24.6. General: no distress, appears at stated age Derm: warm, dry Head: atraumatic, normocephalic, symmetric Mouth: no lip lesion, mucus membranes moist Cardiovascular: good distal perfusion in all 4 extremities Lungs: breathing comfortably, no accessory muscle use Ext: no gross muscle atrophy, no edema, no contractures Neuro: No focal neurologic deficits. Psych: Alert and oriented. +Laboy Based on my assessment of this patient, this patient meets a high complexity level of care. Acute blood loss anemia: Expected result of surgery. Daily CBC. Transfused 1 PRBC 01/25 + 01/26. Repeat CBC in the AM. Transfuse if Hg < 7. Acute displaced subtrochanteric fracture of the right femur: POD 5 closed reduction and intramedullary nailing right femur. Fall precautions. PT and OT on board. Orthopedic Sx managing. Hypothryoid: Synthroid 88 mcg PO QD. Depression: Lexapro 20 mg PO QHS. Removal of right hip hardware POD 6 management per Orthopedic Sx Plans for SNF. Attempt voiding trial discussed with RN. Patient is medically stable. CODE STATUS: FULL CODE DVT Prophylaxis: Hold Eliquis due to drop in Hg. GI Prophylaxis: Designated medical POA if patient is not able to make medical decisions for themselves: I have reviewed the following product development consultant notes: I have reviewed the results of the following tests: CBC. I have ordered the following tests: CBC in the AM. I have discussed the care of this patient with the following independent historian: Family at bedside. RN. I have independently interpreted the following test below: I have discussed the management of this patient with the following physician: Objective - Vital Signs Vital signs: Vital Signs Temp 98.2 F 01/29/25 07:28 Pulse 73 01/29/25 07:28 Resp 18 01/29/25 07:28 BP 117/66 01/29/25 07:28 Pulse Ox 95 01/29/25 07:28 FiO2 Intake & Output 01/28/25 01/29/25 01/29/25 18:59 06:59 18:59 Intake Total 240 Output Total 650 1500 500 Balance -650 -1260 -500 Intake: Oral 240 Output: Urine 650 1500 500 Uretheral (Laboy) 500 Other: Voiding Method Indwelling Catheter Indwelling Catheter # Bowel Movements 1 - Labs CBC & Chem 7: 01/29/25 02:35 01/25/25 03:13 Labs: Abnormal Lab Results - Last 24 Hours (Table) 01/29/25 Range/Units 02:35 RBC 2.57 L (4.10-5.20) X 10*6/uL Hgb 7.9 L (12.0-15.0) g/dL Hct 24.6 L (37.2-46.3) % RDW 16.6 H (11.5-14.5) %
[2025-01-30 03:46] LABS: HCT 24.6 % (37.2-46.3); HGB 8.1 g/dL (12.0-15.0); MCH 31.3 pg (27.0-32.0); MCHC 32.9 g/dL (32.0-37.0); Mean Platelet Volume 9.4 fL (9.5-12.2); Platelet Count 225 10*3/uL (140-440); RBC 2.59 10*6/uL (4.10-5.20); RDW 16.7 % (11.5-14.5); WBC 4.64 10*3/uL (4.50-10.00)
[2025-01-30 07:45] VITALS: TEMP 97.9
--- NOTE | 2025-01-30 12:00 | CDI ---
Documentation Clarification Form Date: 01/30/2025 11:37:00 AM From: Gerda Samuel RN, CCDS Phone: [phone] Admit Date: 01/23/2025 07:24:00 AM Patient Name: Roseline Mena Visit Number: [id number] Discharge Date: ATTENTION: The Clinical Documentation Specialists (CDI) and [facility] Coding Staff appreciate your assistance in clarifying documentation. Please respond to the clarification below the line at the bottom and electronically sign. The CDI & [facility] Coding staff will review the response and follow-up if needed. Please note: Queries are made part of the Legal Health Record. If you have any questions, please contact the author of this message via ITS. Doctor. Manan Manning On 01/25/2025 Subtrochanteric right femur fracture status post hardware removal is documented in the Procedure report and the patient had Removal of hardware right hip on 01/23/2025. Additional clarification regarding the etiology of the fracture is requested. History/Risk Factors: Osteoarthritis, Right hip, Osteochondroma with corby placement Clinical Indications: 84-year-old female that had a sliding hip screw removed from her right hip that had been in there approximately 30 years and subsequently developed osteoarthritis of that hip and required a total hip arthroplasty on 01/23/25. 01/24 Patient was transferring back into bed from [facility] and she heard a pop in her right hip X-Ray Results 01/24 Hip X-ray; Acute displaced and angulated subtrochanteric with posttraumatic varus deformity. Treatment: Close reduction and intramedullary nailing right femur PT and OT evaluation and treatment Please clarify the etiology of the fracture, if known: [ x ] Traumatic fracture while transferring from bed to [facility] due to weakness from lack of hardware because of recent hardware removal [ ] Pathological fracture due to osteoarthritis and age-related factors [ ] Other (please specify): [ ] Unable to determine (Template Last Revised: October 2020) MTDD
--- NOTE | 2025-01-30 12:08 | P.PN ---
Subjective Progress Note Date: 01/30/25 This is an 84-year-old female who is status post closed reduction and intramedullary nailing of the right femur. This is postoperative day #6 and patient is seen and evaluated at bedside today. Patient complains of an achiness in the leg which she states is a newer pain for her, but otherwise denies any new complaints today. . Objective - Vital Signs Vital signs: Vital Signs Temp 97.9 F 01/30/25 07:44 Pulse 62 01/30/25 07:44 Resp 15 01/30/25 07:44 BP 120/74 01/30/25 07:44 Pulse Ox 95 01/30/25 07:44 FiO2 Intake & Output 01/29/25 01/30/25 01/30/25 18:59 06:59 18:59 Output Total 900 1550 Balance -900 -1550 Output: Urine 900 1550 Uretheral (Laboy) 500 Other: Voiding Method Indwelling Catheter Bedside Commode External Catheter External Catheter # Bowel Movements 1 - Exam Vital signs are stable. Patient is in no acute distress and is alert and oriented 3. Moderate soft tissue swelling to the right lower extremity. Calf is soft and mildly tender to palpation. Dressings are clean, dry, and intact. Patient has full foot and ankle motion without pain or difficulty. Sensation intact. Neurovascular status and circulatory status are intact. - Labs CBC & Chem 7: 01/30/25 03:01 01/25/25 03:13 Labs: Abnormal Lab Results - Last 24 Hours (Table) 01/30/25 Range/Units 03:01 RBC 2.59 L (4.10-5.20) 10*6/uL Hgb 8.1 L (12.0-15.0) g/dL Hct 24.6 L (37.2-46.3) % RDW 16.7 H (11.5-14.5) % MPV 9.4 L (9.5-12.2) fL Assessment and Plan Assessment: Postop day #6 closed reduction and intramedullary nailing of the right femur for subtrochanteric femur fracture Postop day #7 removal of hardware right hip. (1) S/P hardware removal Current Visit: Yes Status: Acute Priority: Medium Code(s): Z98.890 - OTHER SPECIFIED POSTPROCEDURAL STATES SNOMED Code(s): 170332860 (2) Subtrochanteric fracture of right femur Current Visit: Yes Status: Acute Priority: Medium Code(s): S72.21XA - DISPLACED SUBTROCHANTERIC FRACTURE OF RIGHT FEMUR, INIT SNOMED Code(s): 143958 001 Plan: 1. Strictly nonweightbearing to the right lower extremity. 2. Continue pain control. 3. Eliquis for DVT prophylaxis to be resumed. Doppler US ordered today. 4. Hgb 8.1 this morning. 5. Physical therapy for mobilization. 6. Appreciate input from internal medicine. 7. Anticipate discharge to [facility] once auth is obtained.
--- NOTE | 2025-01-30 12:54 | US ---
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 Recent right hip replacement due to previous hardware malfunction. Right femu r break due to replacement, Pain TECHNIQUE: The lower extremity deep venous system is examined utilizing real time linear array sonog benigno with graded compression, color doppler sonography, and spectral doppler. SIDE PERFORMED: Right FINDINGS: VESSELS IMAGED: Common Femoral Vein Deep Femoral Vein Greater Saphenous Vein * Femoral Vein Popliteal Vein Small Saphenous Vein * Proximal Calf Veins (* superficial vessels) Right Leg: Negative for DVT, Color Doppler imaging shows patency of the vessels. Spectral waveforms are within normal limits. IMPRESSION: No ultrasound evidence for deep venous thrombosis. [facility], , 01/30/2025 12:52 PM
[2025-01-30 14:31] VITALS: BP 121/74; PULSE 75; RESP 16
--- NOTE | 2025-01-30 14:59 | P.PN ---
Subjective Progress Note Date: 01/30/25 Hospital Course: 84 year old F with PMH of hypothyroidism and depression presents to [facility] for el ective surgery. She underwent removal of right hip hardware with Dr. Manning. [facility] consulted for medical management of this patient. Postop course was complicated by blood loss anemia, patient required 2 units of PRBC, hemoglobin improved to 8.1 on 01/30. Otherwise patient is doing well, plan to discharge to SNF, medically stable from IM standpoint, patient to take iron 325 daily, follow-up with PCP, recommend to recheck CBC. Subjective: Feels well, complains of right hip pain that goes down to the right foot, controlled with pain medications Pertinent positives and negatives as discussed above, a complete review of systems was performed and all other systems are negative. Vitals Signs Reviewed. General: [nontoxic], [no distress], [appears at stated age] Derm: [warm], [dry] Head: [atraumatic], [normocephalic], [symmetric] Eyes: [EOMI], [no lid lag], [anicteric sclera] Mouth: [no lip lesion], [mucus membranes moist] Cardiovascular: [S1S2 reg], [no murmur] Lungs: [CTA bilateral], [no rhonchi, no rales] , [no accessory muscle use] Abdominal: [soft], [ nontender to palpation], [no guarding], [no appreciable organomegaly] Ext: [Right hip dressing clean and dry Neuro: [ CN II-XI grossly intact], [no focal neuro deficits] Psych: [Alert], [oriented], [appropriate affect] Assessment and Plan: Acute blood loss anemia: Expected result of surgery. Daily CBC. Transfused 1 PRBC 01/25 + 01/26. Globin 8.1 this morning, normal WBC count.. Recommend iron supplement 325 after discharge, follow-up with PCP patient is cleared from IM standpoint for discharge, med rec completed Acute displaced subtrochanteric fracture of the right femur: POD 5 closed reduction and intramedullary nailing right femur. Fall precautions. PT and OT on board. Orthopedic Sx managing. Hypothryoid: Synthroid 88 mcg PO QD. Depression: Lexapro 20 mg PO QHS. Removal of right hip hardware POD 6 management per Orthopedic Discussed with case management, patient's family who was at bedside during evaluation Objective - Vital Signs Vital signs: Vital Signs Temp 97.9 F 01/30/25 14:30 Pulse 75 01/30/25 14:30 Resp 16 01/30/25 14:30 BP 121/74 01/30/25 14:30 Pulse Ox 94 L 01/30/25 14:30 FiO2 Intake & Output 01/29/25 01/30/25 01/30/25 18:59 06:59 18:59 Output Total 900 1550 Balance -900 -1550 Output: Urine 900 1550 Uretheral (Laboy) 500 Other: Voiding Method Indwelling Catheter Bedside Commode External Catheter External Catheter # Bowel Movements 1 - Labs CBC & Chem 7: 01/30/25 03:01 01/25/25 03:13 Labs: Abnormal Lab Results - Last 24 Hours (Table) 01/30/25 Range/Units 03:01 RBC 2.59 L (4.10-5.20) 10*6/uL Hgb 8.1 L (12.0-15.0) g/dL Hct 24.6 L (37.2-46.3) % RDW 16.7 H (11.5-14.5) % MPV 9.4 L (9.5-12.2) fL
--- NOTE | 2025-01-30 15:39 | P.DS ---
Providers Date of admission: 01/23/25 07:24 Attending physician: Manan Manning Consults: 01/23/25 12:01 Consult Physician Routine Consulting Provider: Ryan Mead Consult Reason/Comments: Medical management Do you want consulting provider notified?: Yes Primary care physician: Manan Rosales - Discharge Diagnosis(es) (1) S/P hardware removal Current Visit: Yes Status: Acute Priority: Medium (2) Subtrochanteric fracture of right femur Current Visit: Yes Status: Acute Priority: Medium Hospital Course: This is an 84-year-old female with a known history of a sliding hip screw placed into the right hip ~30 years ago. Patient was seen and evaluated as an outpatient due to an increase in pain in the right hip. Outpatient x-rays revealed osteoarthritis of the right hip. After discussion and consideration patient elected to proceed with removal of hardware from the right hip with the intention of proceeding with a total hip arthroplasty in the future. Patient was seen preoperatively by Dr Manan Manning and cleared for surgery by her primary care physician. Patient was admitted on 01/23/2025 for removal of hardware from the right hip. Procedure is performed without complication or sequelae. However, after surgery the patient was transferring [facility] and felt a pop in the right hip. X-rays done at this time revealed subtrochanteric fracture of the right femur. Consent was obtained for closed reduction and intramedullary nailing of the right hip and this procedure was performed on 01/24/2025. The procedure was performed without complication, but the pateint did require blood transfusion postoperatively. On day of discharge, labs and vital signs are stable. A Doppler ultrasound of the right lower extremity was done on 01/30/2025 and was negative for DVT. On the day of discharge the patient's dressings are clean, dry and intact. Mild to moderate soft tissue swelling. Right lower extremity is warm and well- perfused. Calf is soft and nontender to palpation. Patient is discharged to inpatient rehab in good condition. Please see med rec for sensation intact to the right lower extremity. Neurovascular status and circulatory status are inta ct. Patient is discharged to ECF in good condition. Please see med rec for accurate list of home medications. Plan - Discharge Summary Discharge Rx Participant: Yes New Discharge Prescriptions: New HYDROcodone/APAP 7.5-325MG [[place] 7.5-325] 1 - 2 tab PO Q6H PRN #32 tab PRN Reason: Pain Sennosides [Senokot] 2 tab PO DAILY PRN #60 tablet PRN Reason: Constipation Apixaban [Eliquis] 2.5 mg PO BID 30 Days #60 tab Ferrous Sulfate [Feosol] 325 mg PO DAILY #30 tab Continue Cyanocobalamin [Vitamin B-12 Injection] 1,000 mcg SQ Q14D Escitalopram [Lexapro] 20 mg PO HS Levothyroxine Sodium [Synthroid] 88 mcg PO DAILY Discharge Medication List Cyanocobalamin [Vitamin B-12 Injection] 1,000 mcg SQ Q14D 01/05/25 [History] Escitalopram [Lexapro] 20 mg PO HS 01/05/25 [History] Levothyroxine Sodium [Synthroid] 88 mcg PO DAILY 01/05/25 [History] Apixaban [Eliquis] 2.5 mg PO BID 30 Days #60 tab 01/24/25 [Rx] HYDROcodone/APAP 7.5-325MG [[place] 7.5-325] 1 - 2 tab PO Q6H PRN #32 tab 01/24/25 [Rx] Sennosides [Senokot] 2 tab PO DAILY PRN #60 tablet 01/24/25 [Rx] Ferrous Sulfate [Feosol] 325 mg PO DAILY #30 tab 01/30/25 [Rx] Follow up Appointment(s)/Referral(s): Manan Manning DO [Doctor of Osteopathic Medicine] - 2 Weeks Activity/Diet/Wound Care/Special Instructions: [facility] Non-weightbearing to the right lower extremity with walker. Leave dressings intact. Dressings may be removed by home care nurse or by patient in 7 days. Then change dressing twice daily until follow up. May shower with initial dressing intact and after removal. If dressing become saturated, please remove. Please take Eliquis twice daily for 30 days to prevent blood clots. Recommend use of compression stockings daily until follow up to help prevent swelling and blood clots. May remove at night before sleeping. [facility] with [facility] 2 weeks and call with any questions or concerns, . Discharge Disposition: TRANSFER TO SNF/F
[2025-01-30] MEDS ORDERED: APIXABAN 2.5 MG TABLET PO SCH (21:00)
== END 2025-01-30 16:07 | DRG 481 ==
LOC: OR 07:23 → 4SSUR 07:24
PROVIDERS: ADMIT Orthopaedic Surgery; ATTEND Orthopaedic Surgery
PROC: 0QP604Z Removal of Internal Fixation Device from Right Upper Femur, Open Approach (ICD-10-PCS; 2025-01-23)
PROC: 0QS636Z Reposition Right Upper Femur with Intramedullary Internal Fixation Device, Percutaneous Approach (ICD-10-PCS; principal; 2025-01-24 13:50)
PROC: 30233N1 Transfusion of Nonautologous Red Blood Cells into Peripheral Vein, Percutaneous Approach (ICD-10-PCS; 2025-01-25)
DX: M84.451A Pathological fracture, right femur, initial encounter for fracture (principal); D62 Acute posthemorrhagic anemia; F32.A Depression, unspecified; T84.124A Displacement of internal fixation device of right femur, initial encounter; M16.11 Unilateral primary osteoarthritis, right hip; W06.XXXA Fall from bed, initial encounter; Y79.3 Surgical instruments, materials and orthopedic devices (including sutures) associated with adverse incidents; Z79.890 Hormone replacement therapy; Z86.018 Personal history of other benign neoplasm; Z79.82 Long term (current) use of aspirin; Z79.899 Other long term (current) drug therapy
CPT/HCPCS: 71045; 73501; 73502; 80048; 85025; 85027; 86850; 86900; 86901; 86920